=== PATIENT | male | born 2005 | race Two or more races ===

== ENCOUNTER 2023-06-01 20:03 | Inpatient (IN) | payer MEDICAID, OTHER ==
[~2023-06-01] VITALS: Ht 182.9 cm; Wt 66.7 kg
[2023-06-01] MEDS ORDERED: CEFAZOLIN 2 GM in IV D5W 100 ML IV ONE (21:00)
[2023-06-01] MEDS ORDERED: CEFTRIAXONE 1GM BAG (ER ONLY) 100 ML IV ONE (21:03)
[2023-06-01 21:21] LABS: BASOPHILS % (AUTO) 0.1 % (0.0-2.0); EOSINOPHILS # (AUTO) 0.2 K/uL (0.0-0.7); EOSINOPHILS % (AUTO) 1.6 % (0.0-6.0); HEMATOCRIT 41 % (39-51); HEMOGLOBIN 13.8 g/dL (13.5-17.5); LYMPHOCYTES # (AUTO) 1.6 K/uL (0.8-4.8); LYMPHOCYTES % (AUTO) 16.9 % (20.0-44.0); MEAN CORPUSCULAR HEMOGLOBIN 32 PG (26.0-33.0); MEAN CORPUSCULAR HGB CONC 33 g/dl (31.0-36.0); MEAN CORPUSCULAR VOLUME 96 fL (80-96); MONOCYTES # (AUTO) 0.9 K/uL (0.1-1.30); MONOCYTES % (AUTO) 8.8 % (2.0-12.0); NEUTROPHILS % (AUTO) 72.6 % (43.0-81.0); PLATELET COUNT (AUTO) 247 K/uL (150-450); RED BLOOD CELL COUNT(AUTO) 4.31 MIL/uL (4.5-6.0); RED CELL DISTRIBUTION WIDTH 13.5 % (11.5-15.0); WHITE BLOOD COUNT (AUTO) 9.6 K/uL (4.3-11.0)
[2023-06-01] MEDS ORDERED: CEFTRIAXONE 1GM BAG (ER ONLY) 1 GM/50 ML PIGGYBACK IV ONE (21:30)
[2023-06-01 21:41] LABS: APPEARANCE,URINE SLIGHTLY CLOUDY (CLEAR); BILIRUBIN,URINE NEGATIVE (NEGATIVE); BLOOD, URINE NEGATIVE Ery/uL (NEGATIVE); COLOR,URINE YELLOW (YELLOW); KETONES,URINE NEGATIVE (NEGATIVE); LEUKOCYTE ESTERASE ,URINE NEGATIVE (NEGATIVE); NITRITE, URINE NEGATIVE (NEGATIVE); PH,URINE 7.5 (5.0-8.0); PROTEIN,URINE TRACE mg/dl (NEGATIVE); UGLUCOSE NEGATIVE (NEGATIVE)
[2023-06-01 21:46] LABS: INR 0.97 (0.91-1.10); PARTIAL THROMBOPLASTIN TIME 27.6 SEC (24.3-34.3); PROTHROMBIN TIME 10.2 SECS (9.2-11.1)
[2023-06-01 21:50] LABS: LACTIC ACID 1.1 mmol/L (0.4-2.0)
[2023-06-01 21:56] LABS: ADD URINE CULTURE NO; BACTERIA,URINE None seen /HPF (None Seen); RBC,URINE 0-2 /HPF (0-2); SQUAMOUS EPITHELIAL CELL,UR 0-2 /HPF (None Seen); URINE AMORPHOUS PHOSPHATES Moderate /HPF (None Seen); WBC,URINE 0-2 /HPF (0-3)
[2023-06-01 22:22] LABS: ALBUMIN 3.1 g/dL (3.4-5.0); BILIRUBIN,DIRECT 0.1 mg/dL (0.0-0.2); BILIRUBIN,TOTAL 0.5 mg/dL (0.2-1.0); CALCIUM, SERUM 8.8 mg/dL (8.5-10.1); CREATININE 0.9 mg/dL (0.6-1.3); TOTAL PROTEIN, SERUM 7.1 g/dL (6.4-8.2)
[2023-06-01 22:27] LABS: POTASSIUM 3.4 mmol/L (3.5-5.1)
[2023-06-01 22:30] VITALS: BP 124/72; TEMP 98.1; O2SAT 98
[2023-06-01] MEDS ORDERED: ONDANSETRON HCL/PF 4 MG/2 ML VIAL IVP PRN (23:00)
[2023-06-01] MEDS ORDERED: MAGNESIUM HYDROXIDE 30 ML UDC PO PRN (23:00)
[2023-06-01] MEDS ORDERED: HYDROCODONE/APAP 5/325MG TABLET PO PRN (23:00)
[2023-06-01] MEDS ORDERED: ACETAMINOPHEN 325 MG TABLET PO PRN (23:00)
[2023-06-01] MEDS ORDERED: MAG HYDROX/AL HYDROX/SIMETH 30 ML UDC PO PRN (23:00)
[2023-06-01] MEDS ORDERED: Z GUARD REMEDY 4 OZ OINT TP PRN (23:00)
[2023-06-01] MEDS: IV NS 0.9% 1,000 ML IV PRN (23:15)
[2023-06-02 00:30] VITALS: BP 124/72; TEMP 98.1; O2SAT 98
[2023-06-02] MEDS ORDERED: VANCOMYCIN 1.25 GM in IV D5W 250 ML IV ONE (01:00)
[2023-06-02] MEDS ORDERED: VANCOMYCIN 500 MG VIAL ONE (01:44)
[2023-06-02] MEDS ORDERED: VANCOMYCIN 1 GM /D5W 250 ML PB IV ONE (01:54)
[2023-06-02 06:27] LABS: BASOPHILS % (AUTO) 0.3 % (0.0-2.0); EOSINOPHILS # (AUTO) 0.3 K/uL (0.0-0.7); EOSINOPHILS % (AUTO) 2.8 % (0.0-6.0); HEMATOCRIT 41 % (39-51); LYMPHOCYTES # (AUTO) 2.2 K/uL (0.8-4.8); LYMPHOCYTES % (AUTO) 24.1 % (20.0-44.0); MEAN CORPUSCULAR HEMOGLOBIN 33 PG (26.0-33.0); MEAN CORPUSCULAR HGB CONC 34 g/dl (31.0-36.0); MEAN CORPUSCULAR VOLUME 97 fL (80-96); MONOCYTES # (AUTO) 1.1 K/uL (0.1-1.30); MONOCYTES % (AUTO) 12.3 % (2.0-12.0); NEUTROPHILS # (AUTO) 5.6 K/uL (1.8-8.9); NEUTROPHILS % (AUTO) 60.5 % (43.0-81.0); PLATELET COUNT (AUTO) 249 K/uL (150-450); RED BLOOD CELL COUNT(AUTO) 4.27 MIL/uL (4.5-6.0); RED CELL DISTRIBUTION WIDTH 13.6 % (11.5-15.0); WHITE BLOOD COUNT (AUTO) 9.2 K/uL (4.3-11.0)
[2023-06-02 06:38] LABS: CALCIUM, SERUM 8.9 mg/dL (8.5-10.1); CREATININE 0.8 mg/dL (0.6-1.3); MAGNESIUM 2.3 mg/dL (1.8-2.4); PHOSPHORUS 4.3 mg/dL (2.5-4.9); POTASSIUM 3.7 mmol/L (3.5-5.1)
[2023-06-02 08:00] VITALS: BP 126/42; TEMP 98.2; O2SAT 99
[2023-06-02] MEDS: BACITRACIN ZINC OINT (15 GM) 15 GM TUBE TP SCH ×2 (10:21→17:36)
[2023-06-02] MEDS: VANCOMYCIN 1 GM in IV D5W 250 ML IV SCH ×2 (13:41→20:36)
[2023-06-02 16:00] VITALS: BP 108/55; TEMP 97.9; O2SAT 99
[2023-06-02 20:30] VITALS: BP 121/57; TEMP 97.5; O2SAT 100
[2023-06-03] MEDS: VANCOMYCIN 1 GM in IV D5W 250 ML IV SCH (05:33)
[2023-06-03] MEDS: IV NS 0.9% 1,000 ML IV PRN (05:36)
[2023-06-03 07:30] VITALS: BP 143/76; TEMP 98.2; O2SAT 100
[2023-06-03] MEDS ORDERED: SULF1TAB48 PO (08:59)
[2023-06-03] MEDS ORDERED: BACI3.5O23 OP (09:01)
[2023-06-03] MEDS: BACITRACIN ZINC OINT (15 GM) 15 GM TUBE TP SCH (09:03)
[2023-06-03 09:49] LABS: CALCIUM, SERUM 9.3 mg/dL (8.5-10.1); CREATININE 0.8 mg/dL (0.6-1.3); POTASSIUM 3.4 mmol/L (3.5-5.1)
== END 2023-06-03 11:00 | disposition home or self-care (01) | DRG 383 ==
LOC: ER 20:05 → MED 21:43
PROVIDERS: ATTEND Internal Medicine
DX: L03.115 Cellulitis of right lower limb (principal); S81.811A Laceration without foreign body, right lower leg, initial encounter; W19.XXXA Unspecified fall, initial encounter; F17.290 Nicotine dependence, other tobacco product, uncomplicated; Y93.9 Activity, unspecified; Y92.89 Other specified places as the place of occurrence of the external cause
CPT/HCPCS: 36415; 73590-TC; 80048-TC; 80076-TC; 81001; 83605-TC; 83735-TC; 84100-TC; 85025-TC; 85730-TC; 87040-TC; 87081-TC; 87086-TC; 93971-TC; A4223; A6403; G0378; J0690; J0696; J3370; J7030; J7060